=== PATIENT | male | born 1980 | race Caucasian/White ===

== ENCOUNTER → 2016-11-14 | Outpatient (CLI) | payer BC ==
[~2016-11-14] MED LIST: ADVIN10/60 INH; ESCI1TAB6 PO
--- NOTE | 2016-11-14 09:29 | DIAGNOSTIC IMAGING REPORT ---
ABDOMEN COMPLETE (US) HISTORY: Pain R10.9 Abdominal [id number]. COMPARISON: None. FINDINGS: Pancreas: The pancreas demonstrates a normal echotexture. Liver: Fatty infiltration Gallbladder: No gallbladder wall thickening. No gallstones. CBD: 3 mm Kidneys: No hydronephrosis. Spleen: Normal in size. Aorta: Normal in caliber. IVC: Patent. IMPRESSION: Fatty infiltration of the liver. Otherwise negative study The above report was generated using voice recognition software. It may contain grammatical, syntax or spelling errors. Electronically signed by: Ty Cerda M.D. 11/14/2016 9:28 AM Dictated Date/Time: 11/14/2016 9:28 AM
== END | disposition home or self-care (01) ==
LOC: C.ULTR 08:56
PROVIDERS: ATTEND Internal Medicine Geriatric Medicine
DX: R10.9 Unspecified abdominal pain (principal)

== ENCOUNTER → 2016-11-15 | Outpatient (CLI) | payer BC ==
[2016-11-15 17:37] LABS: BASO % 0.4 %; BASO ABS # 0.02 K/uL (0-0.2); COMPLETE YES; EOS % 2.5 %; HEMATOCRIT 44.7 % (42-52); IG% 0.4 %; LYMPH % 24.5 %; LYMPH ABS # 1.37 K/uL (1.2-3.4); MEAN CELL VOLUME 90.7 fL (80-100); MEAN CORPUSCULAR HEMOGLOBIN 31.2 pg (25-34); MEAN CORPUSCULAR HGB CONC 34.5 g/dl (32-36); MEAN PLATELET VOLUME 9.9 fL (7.4-10.4); MONO % 9.1 %; NEUT % 63.1 %; PLATELET COUNT 175 K/uL (130-400); RED BLOOD COUNT 4.93 M/uL (4.7-6.1); WHITE BLOOD COUNT 5.59 K/uL (4.8-10.8)
[2016-11-15 18:33] LABS: ALT/SGPT 49 U/L (12-78); AST/SGOT 22 U/L (15-37); BLOOD UREA NITROGEN 16 mg/dl (7-18); BUN/CREATININE RATIO 12.3 (10-20); CARBON DIOXIDE 30 mmol/L (21-32); CHLORIDE 106 mmol/L (98-107); GLUCOSE 89 mg/dl (70-99); POTASSIUM 4.1 mmol/L (3.5-5.1); SODIUM 141 mmol/L (136-145)
[2016-11-15 18:35] LABS: ALB/GLOB RATIO 1.2 (0.9-2); ALKALINE PHOSPHATASE 45 U/L (45-117)
[2016-11-21 17:42] LABS: IGA SERUM 159 mg/dL (81-463); TIS TRANS IGA 1 U/mL (<4)
== END | disposition home or self-care (01) ==
LOC: C.LABPBG 11:21
PROVIDERS: ATTEND Internal Medicine Geriatric Medicine
DX: R10.9 Unspecified abdominal pain (principal)

== ENCOUNTER → 2017-05-25 | Outpatient (CLI) | payer BC ==
[2017-05-25 12:49] LABS: BASO % 0.4 %; BASO ABS # 0.03 K/uL (0-0.2); EOS % 2.5 %; EOS ABS # 0.17 K/uL (0-0.5); HEMATOCRIT 46.5 % (42-52); HEMOGLOBIN 16.2 g/dL (14.0-18.0); IG# 0.03 K/uL (0.00-0.02); LYMPH % 28.7 %; LYMPH ABS # 1.95 K/uL (1.2-3.4); MEAN CELL VOLUME 89.6 fL (80-100); MEAN CORPUSCULAR HEMOGLOBIN 31.2 pg (25-34); MEAN CORPUSCULAR HGB CONC 34.8 g/dl (32-36); MONO % 10.5 %; MONO ABS # 0.71 K/uL (0.11-0.59); NEUT % 57.5 %; PLATELET COUNT 170 K/uL (130-400); RED CELL DISTRIBUTION WIDTH CV 12.8 % (11.5-14.5); RED CELL DISTRIBUTION WIDTH SD 41.5 fL (36.4-46.3); WHITE BLOOD COUNT 6.79 K/uL (4.8-10.8)
[2017-05-25 13:10] LABS: ALT/SGPT 52 U/L (12-78); AST/SGOT 22 U/L (15-37); BLOOD UREA NITROGEN 15 mg/dl (7-18); CALCIUM 9.4 mg/dl (8.5-10.1); CARBON DIOXIDE 29 mmol/L (21-32); CREATININE 1.08 mg/dl (0.60-1.40); GLUCOSE 85 mg/dl (70-99); POTASSIUM 3.9 mmol/L (3.5-5.1); SODIUM 137 mmol/L (136-145)
[2017-05-25 13:20] LABS: ALKALINE PHOSPHATASE 46 U/L (45-117); TOTAL PROTEIN 7.4 gm/dl (6.4-8.2)
== END | disposition home or self-care (01) ==
LOC: C.LABPBG 10:43
PROVIDERS: ATTEND Internal Medicine Geriatric Medicine
DX: G47.33 Obstructive sleep apnea (adult) (pediatric) (principal); F41.0 Panic disorder [episodic paroxysmal anxiety]; E78.5 Hyperlipidemia, unspecified

== ENCOUNTER 2017-12-11 12:25 | Emergency (ER) | payer BC ==
[~2017-12-11] VITALS: Ht 185.4 cm; Wt 103.8 kg
[2017-12-11 12:40] VITALS: TEMP 36.7; Ht 185.4 cm; Wt 103.8 kg
[2017-12-11] MEDS ORDERED: SERT1TAB68 PO (12:58)
--- NOTE | 2017-12-11 13:34 | DIAGNOSTIC IMAGING REPORT ---
L FOOT MIN 3 VIEWS ROUTINE CLINICAL HISTORY: 37 years-old Male presenting with L foot pain. TECHNIQUE: Frontal, oblique, and lateral views of the left foot were obtained. COMPARISON: None. FINDINGS: No acute fracture or malalignment. Small and these of findings at the insertion of the Achilles tendon. No radiographic soft tissue abnormality. IMPRESSION: No acute osseous injury. Electronically signed by: Farhad Balderrama M.D. 12/11/2017 1:33 PM Dictated Date/Time: 12/11/2017 1:32 PM
--- NOTE | 2017-12-11 13:57 | EMERGENCY ROOM VISIT NOTE ---
History First contact with patient: 12:51 Chief Complaint: FOOT PAIN Stated Complaint: LARGE BRUISE AND LUMP ON BOTTOM OF FOOT History of Present Illness The patient is a 37 year old male who presents to the Emergency Room with complaints of worsening bruising on the bottom of his left foot. The patient reports that he started to notice swelling and bruising on Sunday morning. He denies any known injury to the foot. 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 The patient reports that he tried to go back to work yesterday which only worsened his pain, bruising and swelling. He denies any prior history of chronic foot pain or injuries, and rates his discomfort a 7 out of 10 with weightbearing. He denies any pain extending into the ankle, and denies any paresthesias or numbness of the foot or toes. Review of Systems 10 system review was performed and was negative except for pertinent positives and negatives as indicated in history of present illness Past Medical/Surgical History Medical Problems: (1) Asthma (2) Diverticulitis Colon (W/O Ment Of Hemorrhage) (3) Family Hx-Gi Malignancy Family History Cancer Social History Smoking Status: Never Smoker Alcohol Use: occasionally Marital Status: Housing Status: lives with family Occupation Status: employed Current/Historical Medications Scheduled Fluticasone Prop/Salmeterol (Advair Diskus 100/50 60 Dose), 1 PUFF INH BID Sertraline Hcl (Zoloft), 100 MG PO DAILY Physical Exam Vital Signs Date Time Temp Pulse Resp B/P (MAP) Pulse Ox O2 Delivery O2 Flow Rate FiO2 12/11/17 12:40 36.7 95 16 163/97 98 Room Air Physical Exam CONSTITUTIONAL: Healthy and well nourished. Alert and oriented X 3 with positive affect. HEENT: Normocephalic, atraumatic. Pupils equal, round and reactive. NECK: Full active range of motion without discomfort. MUSCULOSKELETAL: Examination shows a hematoma of the left plantar foot. No obvious puncture wounds noted. The patient has no tenderness to palpation along the calcaneus or insertion of the plantar fascia. He also has no tenderness to palpation of the distal metatarsal heads, phalanges or dorsal foot. No worsening pain with subtalar motion. Pedal pulses are intact. INTEGUMENTARY: No rash or other significant dermatologic conditions noted. NEUROLOGIC: Left foot and toes are sensory intact. Medical Decision & Procedures ER Provider Diagnostic Interpretation: My interpretation of left foot x-rays does not show any obvious fractures, dislocation or radio take foreign bodies. Radiologist report is as follows: L FOOT MIN 3 VIEWS ROUTINE CLINICAL HISTORY: 37 years-old Male presenting with L foot pain. TECHNIQUE: Frontal, oblique, and lateral views of the left foot were obtained. COMPARISON: None. FINDINGS: No acute fracture or malalignment. Small and these of findings at the insertion of the Achilles tendon. No radiographic soft tissue abnormality. IMPRESSION: No acute osseous injury. ED Course Patient history and physical exam were performed. Nurse's notes were reviewed. Vital signs were reviewed and were normal. The patient refused any analgesics on initial exam. X-rays of the left foot were normal. The patient reports that if he needs time off work, he will need an FMLA form completed. I did encourage the patient to follow-up with [facility] to discuss treatment options before completing this form. He was dispensed crutches to remain nonweightbearing. He was also instructed to intermittently apply deep ice massages to the plantar aspect of the foot. Ibuprofen or Tylenol as needed for pain. The patient was happy with plan of care, voiced understanding of all discharge instructions, and denied any significant discomfort at the time of discharge. Medical Decision Medication Reconcilliation Current Medication List: was personally reviewed by me Blood Pressure Screening Patient's blood pressure: Normal blood pressure Impression Primary Impression: Left foot hematoma Departure Information Referrals Rik Hoffmann M.D. (PCP) Patient Instructions My [facility]
[2017-12-11 14:02] VITALS: BP 145/85; PULSE 85; O2SAT 98
== END 2017-12-11 14:02 | disposition home or self-care (01) ==
LOC: C.EDB 12:26 → C.EDD 14:02
DX: S90.32XA Contusion of left foot, initial encounter (principal); X58.XXXA Exposure to other specified factors, initial encounter; J45.909 Unspecified asthma, uncomplicated; Z80.0 Family history of malignant neoplasm of digestive organs; Z79.899 Other long term (current) drug therapy